=== PATIENT | male | born 1960 | race American Indian/Alaskan Native ===

== ENCOUNTER 2018-01-10 07:26 | Outpatient (CLI) | payer BC ==
--- NOTE | 2018-01-10 13:43 | Nuclear Medicine Report ---
BONE SCAN: History: Malignant neoplasm of prostate. Comparison: CT abdomen pelvis without contrast performed the same day. After injection of isotope, gamma camera imaging of the bony system was done. Mild degenerative uptake is noted at both acromioclavicular joints, sternoclavicular joints and feet. There is focal uptake overlying the left L4-5 facet joint which correlates to osteoarthritic changes on CT abdomen and pelvis performed the same day. No abnormal focal uptake to suggest metastatic disease to the osseous structures or fracture. Mild urinary contamination on the perineum is noted. IMPRESSION: Degenerative changes. No evidence for metastatic disease to the bones.
--- NOTE | 2018-01-10 15:26 | Cat Scan Report ---
CT ABDOMEN PELVIS WITHOUT CONTRAST: HISTORY: Malignant neoplasm of prostate. COMPARISON: none. TECHNIQUE: Helical CT in 1.25mm intervals without IV contrast. Sagittal and coronal reconstructions. FINDINGS: Lung bases: Normal. Liver: Normal. Biliary system: Normal. Pancreas: Normal. Spleen: Normal. Kidneys/ureters/bladder: Within normal limits. A 1 cm cyst in the mid left kidney is noted. Adrenal glands: Normal. Aorta: Normal. Intestines: Mild diverticulosis of the ascending and descending colon is noted. No evidence for obstruction or focal inflammation. Appendix: Normal. Pelvic viscera: The prostate gland measures 4.9 x 3.9 x 4.8 cm. Ascites: None. Adenopathy: None. Musculoskeletal: No suspicious bony lesion or fracture is identified. IMPRESSION: Essentially unremarkable CT scan of the abdomen and pelvis without contrast. No evidence for metastatic disease. Mild diverticulosis of the colon. 1 cm left renal cyst.
== END 2018-01-10 07:27 | disposition home or self-care (01) ==
LOC: NM 07:26
PROVIDERS: ATTEND Urology
DX: C61 Malignant neoplasm of prostate (principal); K57.30 Diverticulosis of large intestine without perforation or abscess without bleeding; N28.1 Cyst of kidney, acquired
CPT/HCPCS: 74176; 78306; A9503